=== PATIENT | female | born 1980 | race Caucasian/White ===

== ENCOUNTER 2019-04-29 06:09 | Emergency (ER) | payer OTHER ==
[~2019-04-29] VITALS: Ht 162.6 cm; Wt 53.5 kg
[2019-04-29 06:18] VITALS: BP 108/77
--- NOTE | 2019-04-29 06:19 | NUR ---
BIBF. C/O "HAVING NECK PAIN X1 DAY" -SOB AOX4. VSS. AMBULATORY. -TRAUM
[2019-04-29] MEDS ORDERED: KETOROLAC TROMETHAMINE INJ 30 MG/ML VIAL ONE (06:29)
[2019-04-29] MEDS: KETOROLAC TROMETHAMINE INJ 60 MG/2 ML VIAL IM ONE (06:34)
== END 2019-04-29 06:37 | disposition home or self-care (01) ==
LOC: ER 06:12
DX: S16.1XXA Strain of muscle, fascia and tendon at neck level, initial encounter (principal); Z88.1 Allergy status to other antibiotic agents; X58.XXXA Exposure to other specified factors, initial encounter; Y93.89 Activity, other specified; Y92.89 Other specified places as the place of occurrence of the external cause; Y99.8 Other external cause status
CPT/HCPCS: 96372; 99283; J1885